=== PATIENT | female | born 1995 | race American Indian/Alaskan Native ===

== ENCOUNTER 2018-07-25 10:24 | Emergency (ER) | payer MEDICAID ==
[2018-07-25 10:36] VITALS: BP 144/89
--- NOTE | 2018-07-25 11:39 | Emergency Department Report ---
Chief Complaint: Dental/Oral Stated Complaint: TOOTHACHE Time Seen by Provider: 07/25/18 11:39 - HPI History of Present Illness: NEEDS MED FOR DENTAL HAS DMD APPNT - Exam Vital Signs: Vital Signs 07/25/18 10:35 Temperature 98.6 F Pulse Rate 77 Respiratory 16 Rate Blood Pressure 144/89 [Right] O2 Sat by Pulse 98 Oximetry MSE screening note: Focused history and physical exam performed. Due to findings the following was ordered: ED Disposition for MSE Condition: Stable
--- NOTE | 2018-07-25 11:58 | Emergency Department Report ---
ED Recheck HPI - General Chief Complaint: Dental/Oral Stated Complaint: TOOTHACHE Time Seen by Provider: 07/25/18 11:39 Source: patient Mode of arrival: Ambulatory Limitations: No Limitations - History of Present Illness Initial Comments: 23 yo in NAD Has dmd appnt in AM and finished her amox He sent her here because of the amox has not helped. He told her come here for another antibiotic Complaint: medication refill request - Related Data Previous Rx's Medication Instructions Recorded Last Taken Type Clindamycin [Clindamycin CAP] 300 mg PO Q8H #30 cap 07/25/18 Unknown Rx traMADol [Ultram] 50 mg PO Q6HR PRN #10 tablet 07/25/18 Unknown Rx ED Review of Systems ROS: Stated complaint: TOOTHACHE Other details as noted in HPI Comment: All other systems reviewed and negative ED Past Medical Hx - Past Medical History Previous Medical History?: No - Surgical History Past Surgical History?: No - Family History Family history: no significant - Social History Smoking Status: Never Smoker Substance Use Type: None - Medications Home Medications: Home Medications Medication Instructions Recorded Confirmed Last Taken Type Clindamycin [Clindamycin CAP] 300 mg PO Q8H #30 cap 07/25/18 Unknown Rx traMADol [Ultram] 50 mg PO Q6HR PRN #10 tablet 07/25/18 Unknown Rx ED Physical Exam - General Limitations: No Limitations General appearance: alert - Head Head exam: Present: atraumatic - Eye Eye exam: Present: normal appearance, PERRL - ENT ENT exam: Present: normal exam - Expanded ENT Exam Expanded Mouth exam: Absent: drooling, trismus, muffled voice, tongue normal, tongue elevation Teeth exam: Absent: dental caries, fractured tooth # Throat exam: Positive: other (gum abscess above right canine). Negative: tonsillar erythema, tonsillomegaly, tonsillar exudate, R peritonsillar mass, L peritonsillar mass - Neck Neck exam: Present: normal inspection - Respiratory Respiratory exam: Present: normal lung sounds bilaterally - Cardiovascular Cardiovascular Exam: Present: regular rate ED Course Vital Signs 07/25/18 10:35 Temperature 98.6 F Pulse Rate 77 Respiratory 16 Rate Blood Pressure 144/89 [Right] O2 Sat by Pulse 98 Oximetry ED Recheck MDM - Core Measures Measure Exclusions: not indicated - Medical Decision Making simple dental DMD sent for anbx see HPI ABC intact VSS dc home with rx for clinda and tramadol. Will see DMD in AM Vital Signs 07/25/18 10:35 Temperature 98.6 F Pulse Rate 77 Respiratory 16 Rate Blood Pressure 144/89 [Right] O2 Sat by Pulse 98 Oximetry Critical care attestation.: If time is entered above; I have spent that time in minutes in the direct care of this critically ill patient, excluding procedure time. ED Disposition Clinical Impression: Pain, dental Disposition: [id number] TO HOME OR SELFCARE Is pt being admited?: No Does the pt Need Aspirin: No Condition: Stable Instructions: Dental Caries (ED), Toothache (ED) Additional Instructions: see dentist as scheduled Prescriptions: Clindamycin [Clindamycin CAP] 300 mg PO Q8H #30 cap traMADol [Ultram] 50 mg PO Q6HR PRN #10 tablet PRN Reason: Pain Referrals: MARE QUINONES MD [Primary Care Provider] - 3-5 Days [facility] [Outside] - 3-5 Days Time of Disposition: 11:56
== END 2018-07-25 13:48 | disposition home or self-care (01) ==
LOC: ED 10:24
DX: K08.89 Other specified disorders of teeth and supporting structures (principal)
CPT/HCPCS: 99281

== ENCOUNTER 2021-03-31 18:50 | Emergency (ER) | payer SELFPAY | END 2021-03-31 19:45 | disposition left against medical advice (07) | LOC: ED 18:50 | DX: K08.89 Other specified disorders of teeth and supporting structures (principal); Z53.21 Procedure and treatment not carried out due to patient leaving prior to being seen by health care provider ==